=== PATIENT | female | born 1990 | race Two or more races ===

== ENCOUNTER 2019-10-04 09:15 | Outpatient (CLI) | payer OTHER ==
[~2019-10-04 09:15] MED LIST: SUPER B-COMPL400 MCG
[2019-10-04] MEDS ORDERED: TYLENO PO (11:24)
== END 2019-10-04 09:21 | disposition home or self-care (01) ==
LOC: TOM 09:15
DX: C50.811 Malignant neoplasm of overlapping sites of right female breast (principal)

== ENCOUNTER 2019-10-05 05:45 | Day surgery (SDC) | payer OTHER ==
[~2019-10-05 05:45] MED LIST changes: +TYLENO PO
== END 2019-10-05 16:25 | disposition home or self-care (01) ==
LOC: CIR.AMB 05:45
DX: D05.11 Intraductal carcinoma in situ of right breast (principal); C77.3 Secondary and unspecified malignant neoplasm of axilla and upper limb lymph nodes; N62 Hypertrophy of breast; Z41.1 Encounter for cosmetic surgery; Z90.13 Acquired absence of bilateral breasts and nipples

== ENCOUNTER 2019-11-01 06:00 | Day surgery (SDC) | payer OTHER ==
[2019-11-01] MEDS ORDERED: PERCOCET 5-3251 EACH PO (09:11)
== END 2019-11-01 10:30 | disposition home or self-care (01) ==
LOC: CIR.AMB 06:00
DX: C50.811 Malignant neoplasm of overlapping sites of right female breast (principal)
CPT/HCPCS: 36561; C1751

== ENCOUNTER 2020-09-09 21:59 | Emergency (ER) | payer OTHER ==
[~2020-09-09] VITALS: Ht 152.4 cm; Wt 56.7 kg
[~2020-09-09 21:59] MED LIST changes: +PERCOCET 5-3251 EACH PO
[2020-09-09] MEDS ORDERED: ZOLADEX3.6 MG (23:12)
[2020-09-09] MEDS ORDERED: LETROZOLE2.5 MG (23:12)
[2020-09-10] MEDS ORDERED: VOLTAREN100 GM TOP (10:41)
== END 2020-09-10 11:01 ==
LOC: ER 21:59
DX: M79.661 Pain in right lower leg (principal)

== ENCOUNTER 2020-10-10 05:56 | Day surgery (SDC) | payer OTHER ==
[~2020-10-10 05:56] MED LIST changes: +LETROZOLE2.5 MG; +VOLTAREN100 GM TOP; +ZOLADEX3.6 MG
== END 2020-10-10 14:10 | disposition home or self-care (01) ==
LOC: CIR.AMB 05:56
PROVIDERS: ATTEND Plastic Surgery
DX: C50.411 Malignant neoplasm of upper-outer quadrant of right female breast (principal); Z90.13 Acquired absence of bilateral breasts and nipples; Z20.822 Contact with and (suspected) exposure to COVID-19
CPT/HCPCS: 19342; C1789; 15771

== ENCOUNTER 2023-10-05 07:58 | Day surgery (SDC) | payer OTHER ==
[2023-10-05] MEDS ORDERED: fentaNYL CITRATE 50 MCG/ML AMPUL IV PUSH ONE (13:00)
[2023-10-05] MEDS ORDERED: MIDAZOLAM HCL 2 MG/2 ML VIAL IV ONE (13:00)
[2023-10-05] MEDS ORDERED: DIPHENHYDRAMINE HCL 50 MG/ML VIAL 1ML IV ONE (13:00)
[2023-10-05] MEDS ORDERED: ONDANSETRON HCL 2 MG/ML VIAL IV ONE (13:00)
== END 2023-10-05 15:05 | disposition home or self-care (01) ==
LOC: AMB-ENDOS 07:58 → CIR.AMB 13:45 → AMB-ENDOS 15:05
PROVIDERS: ATTEND Colon & Rectal Surgery
DX: Z12.11 Encounter for screening for malignant neoplasm of colon (principal); K64.8 Other hemorrhoids; R19.4 Change in bowel habit

== ENCOUNTER 2025-01-07 11:15 | Inpatient (IN) | payer OTHER ==
[~2025-01-07] VITALS: Ht 152.4 cm; Wt 61.2 kg
[2025-01-08 13:43] VITALS: BP 107/75
[2025-01-08 14:19] LABS: COVID-19 AG NEGATIVE (NEGATIVE)
[2025-01-08 15:26] LABS: RH POSITIVE
[2025-01-10] MEDS ORDERED: OxyCODONE HCL 5 MG TABLET (ROXICODONE) PO PRN (07:45)
[2025-01-10] MEDS ORDERED: MORPHINE SULFATE 4 MG/ML CARTRIDGE IV PRN (07:45)
[2025-01-10] MEDS ORDERED: KETOROLAC TROMETHAMINE 30 MG VIAL IV ONE (07:45)
[2025-01-10] MEDS ORDERED: RINGERS SOLUTION,LACTATED 1,000 ML IV SCH (07:45)
[2025-01-10] MEDS ORDERED: MORPHINE SULFATE 4 MG/ML VIAL IV ONE (08:45)
[2025-01-10] MEDS ORDERED: SIMETHICONE 125 MG CAPSULE PO SCH (09:00)
[2025-01-10] MEDS ORDERED: METOCLOPRAMIDE HCL 5 MG/ML VIAL IV SCH (09:00)
[2025-01-10] MEDS ORDERED: FAMOTIDINE/PF 20 MG/2 ML VIAL IV PUSH SCH (09:00)
[2025-01-10] MEDS ORDERED: CEFAZOLIN SODIUM 1,000 MG VIAL IV SCH (09:00)
[2025-01-10] MEDS ORDERED: SURGIFLO APPLICATOR 1 EACH APPL TOP ONE (09:00)
[2025-01-10] MEDS ORDERED: CEFAZOLIN SODIUM 1,000 MG VIAL IV ONE (09:00)
[2025-01-10] MEDS ORDERED: POVIDONE-IODINE 118 ML BOTT TOP ONE (09:00)
[2025-01-10] MEDS ORDERED: DOCUSATE SODIUM 100MG CAP PO SCH (09:00)
[2025-01-10] MEDS ORDERED: HEMOSTATIC MATRIX WITH THROMBIN KIT TOP ONE (09:00)
[2025-01-10] MEDS ORDERED: METRONIDAZOLE/SODIUM CHLORIDE 500 MG/100 ML PIGGYBACK IV ONE (09:00)
[2025-01-10] MEDS ORDERED: SUGAMMADEX SODIUM 200 MG/2 ML VIAL IV ONE (09:15)
[2025-01-10 10:32] LABS: BASO % 0.2 % (0.1-1.2); EOS # 0.01 (0.04-0.54); EOS % 0.1 % (0.7-7.0); LYMPH # 1.09 (1.18-3.74); LYMPH % 7.7 % (19.3-53.1); MEAN PLATELET VOLUME 12.80 fl (9.4-12.4); MONO # 0.59 (0.24-0.82); MONO % 4.2 % (4.7-12.5); NEUT # 12.34 (1.56-6.13); NEUT % 87.4 % (34.0-71.1); RED CELL DISTRIBUTION WIDTH 13.0 % (11.6-14.4)
[2025-01-10 11:14] LABS: BUN CREA RATIO 15.0 (7.0-25.0); CREATININE SERUM 0.61 mg/dL (0.55-1.02); GFR 111.61; GLUCOSE FASTING 112.0 mg/dL (65-100); OSMOLALITY SERUM 286.0 MOSM/KG (275-295)
[2025-01-10] MEDS ORDERED: ACETAMINOPHEN 500 MG GEL..CAP PO SCH (12:00)
[2025-01-10 12:05] VITALS: BP 118/78
[2025-01-10 16:00] VITALS: BP 102/68
[2025-01-10] MEDS ORDERED: GABAPENTIN 300 MG CAPSULE PO SCH (21:00)
[2025-01-10] MEDS ORDERED: CELECOXIB 200 MG CAPSULE PO SCH (21:00)
[2025-01-11 00:35] VITALS: BP 96/60; O2SAT 97
[2025-01-11 02:48] LABS: BASO % 0.3 % (0.1-1.2); EOS # 0.02 (0.04-0.54); EOS % 0.3 % (0.7-7.0); LYMPH # 2.28 (1.18-3.74); LYMPH % 28.6 % (19.3-53.1); MEAN PLATELET VOLUME 12.80 fl (9.4-12.4); MONO # 0.92 (0.24-0.82); MONO % 11.6 % (4.7-12.5); NEUT # 4.70 (1.56-6.13); NEUT % 58.9 % (34.0-71.1); RED CELL DISTRIBUTION WIDTH 13.2 % (11.6-14.4)
[2025-01-11 03:06] LABS: BUN CREA RATIO 13.0 (7.0-25.0); GFR 150.79; GLUCOSE FASTING 84.0 mg/dL (65-100); OSMOLALITY SERUM 284.0 MOSM/KG (275-295)
[2025-01-11 03:17] LABS: CREATININE SERUM 0.47 mg/dL (0.55-1.02)
[2025-01-11 08:19] VITALS: BP 124/81; O2SAT 99
[2025-01-11] MEDS ORDERED: ENOXAPARIN SODIUM 40 MG/0.4 ML SYRINGE SUBCUTANEO SCH (09:00)
== END 2025-01-11 11:25 | disposition home or self-care (01) | DRG 743 ==
LOC: O/R 01-10 08:20 → OB/GYN 01-10 08:20 → SURH 01-10 11:15 → OB/GYN 01-11 11:25
PROVIDERS: Obstetrics & Gynecology; ADMIT Obstetrics & Gynecology Gynecologic Oncology; ATTEND Obstetrics & Gynecology Gynecologic Oncology
PROC: 0UT74ZZ Resection of Bilateral Fallopian Tubes, Percutaneous Endoscopic Approach (ICD-10-PCS; 2025-01-10)
PROC: 0UT24ZZ Resection of Bilateral Ovaries, Percutaneous Endoscopic Approach (ICD-10-PCS; 2025-01-10)
PROC: 8E0W4CZ Robotic Assisted Procedure of Trunk Region, Percutaneous Endoscopic Approach (ICD-10-PCS; 2025-01-10)
PROC: 0UT94ZZ Resection of Uterus, Percutaneous Endoscopic Approach (ICD-10-PCS; principal; 2025-01-10 13:30)
DX: D25.1 Intramural leiomyoma of uterus (principal); C50.911 Malignant neoplasm of unspecified site of right female breast; Z15.01 Genetic susceptibility to malignant neoplasm of breast
CPT/HCPCS: 58571; S2900